=== PATIENT | female | born 1950 | race Native Hawaiian/Other Pacific Islander ===

== ENCOUNTER 2016-07-31 02:56 | Outpatient (CLI) | payer OTHER ==
[2016-07-31] MEDS ORDERED: OMEP40CA PO (04:17)
[2016-07-31] MEDS ORDERED: HALO1TAB3 PO (04:18)
[2016-07-31] MEDS ORDERED: PHENYTOIN EX100 MG OR (04:18)
[2016-07-31] MEDS ORDERED: AMLO2.5T PO (04:19)
[2016-07-31] MEDS ORDERED: HYDROCHLOROT12.5 M1 PO (04:19)
[2016-07-31] MEDS ORDERED: CITALOPRAM20 MG PO (04:19)
[2016-07-31] MEDS ORDERED: ISOS30TA17 PO (04:20)
[2016-07-31] MEDS ORDERED: DULO60CA2 OR (04:20)
[2016-07-31] MEDS ORDERED: METO25TA2 PO (04:23)
[2016-07-31] MEDS ORDERED: MELOXICAM15 MG OR (04:24)
[2016-07-31] MEDS ORDERED: TEMA15CA19 PO (04:24)
[2016-07-31] MEDS ORDERED: DIAZ2TAB PO (04:25)
[2016-07-31] MEDS ORDERED: TRAM50TA PO (04:27)
[2016-07-31] MEDS ORDERED: CLON0.5T36 PO (04:28)
== END 2016-07-31 03:11 | disposition short-term general hospital (02) ==
LOC: AMB 02:56
DX: R10.84 Generalized abdominal pain (principal); R04.0 Epistaxis
CPT/HCPCS: A0425; A0427

== ENCOUNTER 2016-07-31 03:15 | Inpatient (IN) | payer OTHER ==
[~2016-07-31] VITALS: Ht 162.6 cm; Wt 57.8 kg
[2016-07-31 03:29] VITALS: BP 127/93; TEMP 98.8
[2016-07-31 03:50] LABS: PLATELET COUNT 201 K/uL (152-353)
[2016-07-31 03:51] LABS: POTASSIUM 3.8 mmol/L (3.6-5.2); SODIUM 134 mmol/L (136-145)
[2016-07-31] MEDS ORDERED: OMEP40CA PO (04:17)
[2016-07-31] MEDS ORDERED: HALO1TAB3 PO (04:18)
[2016-07-31] MEDS ORDERED: PHENYTOIN EX100 MG OR (04:18)
[2016-07-31] MEDS ORDERED: HYDROCHLOROT12.5 M1 PO (04:19)
[2016-07-31] MEDS ORDERED: AMLO2.5T PO (04:19)
[2016-07-31] MEDS ORDERED: CITALOPRAM20 MG PO (04:19)
[2016-07-31] MEDS ORDERED: ISOS30TA17 PO (04:20)
[2016-07-31] MEDS ORDERED: DULO60CA2 OR (04:20)
[2016-07-31] MEDS ORDERED: METO25TA2 PO (04:23)
[2016-07-31] MEDS ORDERED: MELOXICAM15 MG OR (04:24)
[2016-07-31] MEDS ORDERED: TEMA15CA19 PO (04:24)
[2016-07-31] MEDS ORDERED: DIAZ2TAB PO (04:25)
[2016-07-31] MEDS ORDERED: TRAM50TA PO (04:27)
[2016-07-31] MEDS ORDERED: CLON0.5T36 PO (04:28)
[2016-07-31 07:30] VITALS: BP 159/89; TEMP 98.7
[2016-07-31 10:43] LABS: PLATELET COUNT 195 K/uL (152-353)
[2016-07-31 11:15] VITALS: BP 172/74; TEMP 97.6; Ht 162.6 cm; Wt 57.8 kg
[2016-07-31 16:27] VITALS: BP 144/81; TEMP 98.3
[2016-07-31 20:00] VITALS: BP 131/72; TEMP 98.4
[2016-08-01 00:22] VITALS: BP 140/68; TEMP 98.5
[2016-08-01 05:50] VITALS: BP 112/69; TEMP 98.7
[2016-08-01 07:59] LABS: PLATELET COUNT 181 K/uL (152-353)
[2016-08-01 08:00] VITALS: BP 110/83; TEMP 98.2
[2016-08-01 08:15] LABS: POTASSIUM 3.1 mmol/L (3.6-5.2); SODIUM 138 mmol/L (136-145)
[2016-08-01 12:00] VITALS: BP 118/90; TEMP 98.3
[2016-08-01 16:00] VITALS: BP 118/71; TEMP 98.6
[2016-08-01 20:00] VITALS: BP 133/66; TEMP 98.8
[2016-08-02 06:32] LABS: PLATELET COUNT 171 K/uL (152-353)
[2016-08-02 06:43] LABS: POTASSIUM 3.1 mmol/L (3.6-5.2); SODIUM 140 mmol/L (136-145)
[2016-08-02 08:00] VITALS: BP 161/77; TEMP 97.5
[2016-08-02 12:00] VITALS: BP 112/84; TEMP 98.3
[2016-08-02 16:00] VITALS: BP 142/66; TEMP 98.3
[2016-08-02 20:28] VITALS: BP 142/68; TEMP 98
[2016-08-03 00:24] VITALS: BP 120/80; TEMP 98
[2016-08-03 04:37] VITALS: BP 122/83; TEMP 98
[2016-08-03 06:47] LABS: PLATELET COUNT 187 K/uL (152-353)
[2016-08-03 06:55] LABS: POTASSIUM 3.4 mmol/L (3.6-5.2); SODIUM 138 mmol/L (136-145)
[2016-08-03 08:00] VITALS: TEMP 98.8
[2016-08-03 15:52] VITALS: BP 124/84; TEMP 98.9
[2016-08-03 20:00] VITALS: BP 112/73; TEMP 98.6
[2016-08-03 23:45] VITALS: BP 139/77; TEMP 98.6
[2016-08-04 04:00] VITALS: BP 131/77; TEMP 98.6
[2016-08-04 05:41] LABS: PLATELET COUNT 192 K/uL (152-353)
[2016-08-04 06:02] LABS: SODIUM 139 mmol/L (136-145)
[2016-08-04 08:00] VITALS: BP 168/69; TEMP 98.7
[2016-08-04 16:00] VITALS: BP 113/77; TEMP 98.3
[2016-08-04] MEDS ORDERED: LEXAPRO20 MG PO (17:59)
[2016-08-04] MEDS ORDERED: RISP0.5T2 PO (18:00)
[2016-08-04] MEDS ORDERED: TRIAMCINOLON0.12 TOP (18:01)
[2016-08-04] MEDS ORDERED: KETO10TA34 PO (18:02)
== END 2016-08-04 16:10 | disposition other institution (70) | DRG 884 ==
LOC: ED 03:15 → EDBD 03:15 → MED/SURG 05:49
PROVIDERS: Internal Medicine; ADMIT Specialist
DX: F02.81 Dementia in other diseases classified elsewhere, unspecified severity, with behavioral disturbance (principal); F32.89 Other specified depressive episodes; F22 Delusional disorders; F41.1 Generalized anxiety disorder; S20.219A Contusion of unspecified front wall of thorax, initial encounter; W19.XXXA Unspecified fall, initial encounter; Y93.89 Activity, other specified; Y92.89 Other specified places as the place of occurrence of the external cause; Y99.8 Other external cause status; L25.9 Unspecified contact dermatitis, unspecified cause; D72.828 Other elevated white blood cell count; R10.84 Generalized abdominal pain; Z86.73 Personal history of transient ischemic attack (TIA), and cerebral infarction without residual deficits; E11.9 Type 2 diabetes mellitus without complications; I10 Essential (primary) hypertension; M06.89 Other specified rheumatoid arthritis, multiple sites
CPT/HCPCS: 36415; 80053; 80185; 81000; 82150; 83036; 83690; 83735; 84100; 84134; 84443; 85027; 87070; 87205; 93005; 96361; 96365; 99284; J0610

== ENCOUNTER 2017-11-12 19:46 | Emergency (ER) | payer OTHER ==
[~2017-11-12] VITALS: Ht 162.6 cm; Wt 63.5 kg
[~2017-11-12 19:46] MED LIST: AMLO2.5T PO; CITALOPRAM20 MG PO; CLON0.5T36 PO; DIAZ2TAB PO; DULO60CA2 OR; HALO1TAB3 PO; HYDROCHLOROT12.5 M1 PO; ISOS30TA17 PO; KETO10TA34 PO; LEXAPRO20 MG PO; MELOXICAM15 MG OR; METO25TA2 PO; OMEP40CA PO; PHENYTOIN EX100 MG OR; RISP0.5T2 PO; TEMA15CA19 PO; TRAM50TA PO; TRIAMCINOLON0.12 TOP
[2017-11-12 20:08] LABS: PLATELET COUNT 228 K/uL (152-353)
[2017-11-12 22:40] VITALS: BP 141/84; TEMP 98
[2017-11-13] MEDS ORDERED: METOCLOPRAM10 MG PO (05:58)
[2017-11-13] MEDS ORDERED: ASPIRIN325 M1 PO (06:01)
[2017-11-13] MEDS ORDERED: DOCU100C10 PO (06:02)
[2017-11-13] MEDS ORDERED: AMLODIPINE BESYLATE PO (06:04)
[2017-11-13] MEDS ORDERED: MIRALAX3350 N1 PO (06:06)
[2017-11-13] MEDS ORDERED: CRANBERRY400 M2 PO (06:08)
[2017-11-13] MEDS ORDERED: CLON1TAB18 PO (06:10)
[2017-11-13] MEDS ORDERED: LORA2INJ21 INJ (06:18)
[2017-11-13] MEDS ORDERED: HYDROXYZ HCL50 MG PO (06:24)
[2017-11-13] MEDS ORDERED: OLANZAPINE2.5 MG PO (06:32)
[2017-11-13] MEDS ORDERED: KETOCONAZOLE21 EX (06:36)
[2017-11-13] MEDS ORDERED: DONE5TAB PO (06:41)
[2017-11-13] MEDS ORDERED: ACID CONTROL20 MG PO (07:12)
[2017-11-13] MEDS ORDERED: NAMENDA5 MG PO (07:14)
[2017-11-13] MEDS ORDERED: PRAVACHOL20 MG PO (07:17)
[2017-11-13] MEDS ORDERED: QUET25TA2 PO (07:20)
[2017-11-13] MEDS ORDERED: LEVAQUIN250 MG PO (07:25)
[2017-11-13] MEDS ORDERED: FLUO10CA2 PO (07:27)
[2017-11-13] MEDS ORDERED: DERMA SMOOTHE EX (07:32)
[2017-11-13] MEDS ORDERED: MAGNSUS68 PO (07:34)
[2017-11-13] MEDS ORDERED: BISA10SU8 RE (07:36)
[2017-11-13] MEDS ORDERED: ALPR0.5T24 PO (07:39)
[2017-11-13] MEDS ORDERED: PHEN125S PO (07:45)
[2017-11-13] MEDS ORDERED: ISOS10TA14 PO (07:47)
[2017-11-13] MEDS ORDERED: SPRITAM500 MG PO (07:50)
[2017-11-13] MEDS ORDERED: NYST100016 TOP (07:51)
[2017-11-13] MEDS ORDERED: INSUINJ20 SC ×2 (08:04→08:11)
[2017-11-13] MEDS ORDERED: ALBUTEROL0.083 % INH (08:16)
[2017-11-26] MEDS ORDERED: AMLODIPINE BESYLATE PO (09:37)
[2017-11-26] MEDS ORDERED: BISA10SU8 RE (09:37)
[2017-11-26] MEDS ORDERED: ASPIRIN325 M1 PO (09:37)
[2017-11-26] MEDS ORDERED: DOCU100C10 PO (09:38)
[2017-11-26] MEDS ORDERED: CRANBERRY400 M2 PO (09:38)
[2017-11-26] MEDS ORDERED: DONE5TAB PO (09:38)
[2017-11-26] MEDS ORDERED: FLUO10CA2 PO (09:39)
[2017-11-26] MEDS ORDERED: HYDROXYZ HCL50 MG PO (09:39)
[2017-11-26] MEDS ORDERED: SPRITAM500 MG PO (09:40)
[2017-11-26] MEDS ORDERED: ISOS10TA14 PO (09:40)
[2017-11-26] MEDS ORDERED: NAMENDA5 MG PO (09:41)
[2017-11-26] MEDS ORDERED: PHEN125S PO (09:44)
[2017-11-26] MEDS ORDERED: ATOR20TA2 PO (09:45)
[2017-11-26] MEDS ORDERED: CLON1TAB18 PO (09:46)
[2017-11-26] MEDS ORDERED: FOLI1TAB26 PO (09:46)
[2017-11-26] MEDS ORDERED: NITR100C56 PO (09:48)
[2017-11-26] MEDS ORDERED: PANTOPRAZOLE 40MG TA PO (09:49)
[2017-11-26] MEDS ORDERED: RISP1TAB PO (09:49)
[2017-11-26] MEDS ORDERED: RISP0.25 PO (09:50)
[2017-11-26] MEDS ORDERED: TRAZ50TA36 PO (09:50)
== END 2017-11-12 22:40 | disposition other institution (70) ==
LOC: ED 19:46 → EDBD 19:46 → ED 22:40
PROVIDERS: Allergy & Immunology
DX: G20 Parkinson's disease (principal); F02.80 Dementia in other diseases classified elsewhere, unspecified severity, without behavioral disturbance, psychotic disturbance, mood disturbance, and anxiety; B86 Scabies; Z04.6 Encounter for general psychiatric examination, requested by authority
CPT/HCPCS: 36415; 80053; 81000; 85027; 93005; 99285